=== PATIENT | male | born 1970 | race Caucasian/White ===

== ENCOUNTER 2023-05-13 10:20 | Outpatient (RCR) | payer OTHER, SELFPAY | END 2023-06-07 08:00 | disposition home or self-care (01) | LOC: PT 10:20 | PROVIDERS: PCP Nurse Practitioner Family; Visit Provider Nurse Practitioner Family | DX: S46.912D Strain of unspecified muscle, fascia and tendon at shoulder and upper arm level, left arm, subsequent encounter (principal); S46.212D Strain of muscle, fascia and tendon of other parts of biceps, left arm, subsequent encounter | CPT/HCPCS: 97110; 97140; 97161 ==

== ENCOUNTER 2023-05-21 14:43 | Outpatient (OUT) | payer OTHER, SELFPAY ==
--- NOTE | 2023-05-21 14:51 | MR_ITS ---
[place] [id number] Patient Name: NEHAL CALIXTO MRN: [id number] date: 1970 Sex: M Assigned Patient Location: MRI Current Patient Location: MRI Accession/Order Number: [id number] Exam Date: 05/21/2023 14:58 Report Date: 05/21/2023 23:33 At the request of: HARRIET MEJIA Procedure: MR shoulder LT wo con EXAM: MR shoulder LT wo con HISTORY: Left Shoulder Strain, Strain Of Left Bicep COMPARISON: None. TECHNIQUE: MRI images obtained with multiple sequences. Noncontrast MRI of the left shoulder. FINDINGS: Mild degeneration of the acromioclavicular joint. There is adjacent reactive bone marrow edema. Subacromial subdeltoid bursal fluid, consistent with bursitis. Supraspinatus, infraspinatus, teres minor and subscapularis tendons are intact. Muscle bulk of the rotator cuff is preserved. Biceps tendon is intact and within the intertubercular groove. Degeneration of the anterior labrum. Posterior labrum and superior labrum are intact. No full-thickness chondral loss of the glenohumeral joint. Undersurface of the acromion process is flat. No acute fractures. No left axillary adenopathy. MR/MR shoulder LT wo con IMPRESSION: 1. No full-thickness rotator cuff tear. Rotator cuff is intact. 2. Subacromial subdeltoid bursal fluid, consistent with bursitis. 3. No full-thickness chondral loss of the glenohumeral joint. Mild degeneration of the acromioclavicular joint. 4. Biceps tendon is intact and within the intertubercular groove. Electronically authenticated by: COLEEN HUNTER Date: 05/21/2023 23:33
== END 2023-05-21 14:44 | disposition home or self-care (01) ==
LOC: MRI 14:43
PROVIDERS: PCP Nurse Practitioner Family; Visit Provider Emergency Medicine
DX: S46.812A Strain of other muscles, fascia and tendons at shoulder and upper arm level, left arm, initial encounter (principal)
CPT/HCPCS: 73221

== ENCOUNTER 2023-06-08 08:38 | Outpatient (RCR) | payer OTHER, SELFPAY | END 2023-07-16 14:41 | disposition home or self-care (01) | LOC: PT 08:38 | PROVIDERS: PCP Nurse Practitioner Family; Visit Provider Nurse Practitioner Family | DX: S46.912D Strain of unspecified muscle, fascia and tendon at shoulder and upper arm level, left arm, subsequent encounter (principal); S46.212D Strain of muscle, fascia and tendon of other parts of biceps, left arm, subsequent encounter | CPT/HCPCS: 97110; 97140 ==

== ENCOUNTER 2023-07-23 07:10 | Outpatient (RCR) | payer OTHER, SELFPAY | END 2024-01-08 13:03 | disposition home or self-care (01) | LOC: PT 07:10 | PROVIDERS: PCP Nurse Practitioner Family; Visit Provider Nurse Practitioner Family | DX: S46.912D Strain of unspecified muscle, fascia and tendon at shoulder and upper arm level, left arm, subsequent encounter (principal); S46.212D Strain of muscle, fascia and tendon of other parts of biceps, left arm, subsequent encounter | CPT/HCPCS: 97110; 97140; 97161 ==

== ENCOUNTER 2024-07-26 14:00 | Outpatient (RCR) | payer OTHER, SELFPAY | END 2024-08-26 11:14 | disposition home or self-care (01) | LOC: PT 14:00 | PROVIDERS: PCP Orthopaedic Surgery; Visit Provider Orthopaedic Surgery | DX: M75.02 Adhesive capsulitis of left shoulder (principal); S46.212D Strain of muscle, fascia and tendon of other parts of biceps, left arm, subsequent encounter; S46.912D Strain of unspecified muscle, fascia and tendon at shoulder and upper arm level, left arm, subsequent encounter; S43.492D Other sprain of left shoulder joint, subsequent encounter | CPT/HCPCS: 97110; 97112; 97140; 97162 ==

== ENCOUNTER 2024-10-25 12:49 | Outpatient (RCR) | payer OTHER, SELFPAY | END 2025-02-16 07:45 | disposition home or self-care (01) | LOC: PT 12:49 | PROVIDERS: PCP Orthopaedic Surgery; Visit Provider Orthopaedic Surgery | DX: M75.02 Adhesive capsulitis of left shoulder (principal); S46.212D Strain of muscle, fascia and tendon of other parts of biceps, left arm, subsequent encounter; S46.912D Strain of unspecified muscle, fascia and tendon at shoulder and upper arm level, left arm, subsequent encounter; S43.492D Other sprain of left shoulder joint, subsequent encounter | CPT/HCPCS: 97110; 97140; 97162 ==

== ENCOUNTER 2025-03-15 16:30 | Outpatient (RCR) | payer OTHER, SELFPAY | END 2025-04-26 08:34 | disposition home or self-care (01) | LOC: PT 16:30 | PROVIDERS: PCP Orthopaedic Surgery; Visit Provider Orthopaedic Surgery | DX: S46.912D Strain of unspecified muscle, fascia and tendon at shoulder and upper arm level, left arm, subsequent encounter (principal); S46.012A Strain of muscle(s) and tendon(s) of the rotator cuff of left shoulder, initial encounter | CPT/HCPCS: 97110; 97140; 97162 ==